=== PATIENT | male | born 1995 | race Caucasian/White ===

== ENCOUNTER → 2024-01-10 | Outpatient (CLI) | payer OTHER ==
[2024-01-10 12:46] LABS: BASO # 0.06 K/mm3 (0.02-0.10); EOS % 3.7 % (0.0-4.0); HEMATOCRIT 43.9 % (42.0-52.0); HEMOGLOBIN 14.4 g/dL (13.5-18.0); LYMPH# 2.24 K/mm3 (1.50-4.00); MEAN CELL VOLUME 90 fl (78-100); MEAN CORPUSCULAR HEMOGLOBIN 29 pg (27-31); MEAN CORPUSCULAR HGB CONC 33 g/dL (33-37); MEAN PLATELET VOLUME 10.3 fl (7.4-10.4); MONO # 0.78 K/mm3 (0.20-0.80); NEU # 4.64 K/mm3 (1.40-6.50); PLATELET COUNT 279 K/mm3 (130-400); RED CELL DISTRIBUTION WIDTH 11.7 % (11.5-14.5)
[2024-01-10 12:56] LABS: ALBUMIN 4.6 g/dL (3.5-5.0)
[2024-01-10 12:57] LABS: CALCIUM 9.5 mg/dL (8.3-10.5)
[2024-01-10 12:58] LABS: TOTAL PROTEIN 6.9 g/dL (6.4-8.3)
[2024-01-10 13:00] LABS: TOTAL BILIRUBIN 0.8 mg/dL (0.2-1.2)
== END ==
LOC: LAB 12:35
PROVIDERS: Nurse Practitioner
DX: Z00.00 Encounter for general adult medical examination without abnormal findings (principal); E04.1 Nontoxic single thyroid nodule; R17 Unspecified jaundice

== ENCOUNTER → 2024-09-18 | Outpatient (CLI) | payer OTHER | LOC: RAD 08:58 | DX: M54.2 Cervicalgia (principal) ==